=== PATIENT | male | born 1995 | race African-American/Black ===

== ENCOUNTER 2018-03-29 01:59 | Emergency (ER) | END 2018-03-29 03:41 | disposition home or self-care (01) ==

== ENCOUNTER 2018-04-01 19:03 | Inpatient (IN) | END 2018-04-02 13:27 | disposition left against medical advice (07) | DRG 558 ==

== ENCOUNTER 2018-04-27 23:22 | Inpatient (IN) | END 2018-04-28 15:15 | DRG 880 ==

== ENCOUNTER 2018-06-23 01:44 | Emergency (ER) | END 2018-06-23 02:54 | disposition left against medical advice (07) ==